=== PATIENT | female | born 1975 | race Caucasian/White ===

== ENCOUNTER 2018-10-03 18:28 | Emergency (ER) | payer BC, OTHER ==
[~2018-10-03] VITALS: Ht 165.1 cm; Wt 91.0 kg
[2018-10-03] MEDS ORDERED: ONDANSETRON HCL 4MG/2ML INJ IV STA (18:59)
[2018-10-03] MEDS ORDERED: KETOROLAC 30MG/ML VIAL IV STA (18:59)
[2018-10-03] MEDS ORDERED: SODIUM CHLORIDE 0.9% 1,000 ML IV ONE (18:59)
[2018-10-03] MEDS ORDERED: MORPHINE SULFATE 4 MG/ML CPJ (NOT FOR IM USE) IV STA (18:59)
[2018-10-03 19:12] LABS: BASOPHILS % 0.5 % (0.0-2.0); EOSINOPHILS % 1.8 % (0.0-5.0); HEMATOCRIT. 37.9 % (36.0-48.0); HEMOGLOBIN. 12.6 g/dL (12.0-16.0); LYMPHOCYTES % 43.5 % (20.0-50.0); MEAN CORPUSCULAR HEMOGLOBIN 29.1 pg (28.0-32.0); MEAN CORPUSCULAR VOLUME 87.4 fL (81.0-99.0); MEAN PLATELET VOLUME 8.2 fl (7.4-10.4); MONOCYTES % 7.2 % (2.0-8.0); PLATELET 335 x1000/uL (130-400); RED BLOOD CELL COUNT 4.34 mill/uL (4.2-5.4); RED CELL DISTRIBUTION WIDTH 14.5 % (11.6-14.6)
[2018-10-03 19:17] LABS: HCG SCREEN NEGATIVE
[2018-10-03 19:18] LABS: CHLORIDE 105 mEq/L (98-107)
[2018-10-03] MEDS ORDERED: MORPHINE SULFATE 4 MG/ML CPJ (NOT FOR IM USE) IV ONE ×2 (19:45→21:30)
[2018-10-03] MEDS ORDERED: KETAMINE HCL 50 MG/ML 10ML IV ONE (20:30)
[2018-10-03] MEDS ORDERED: MIDAZOLAM HCL 2 MG/2 ML VIAL IV ONE (20:30)
[2018-10-03] MEDS ORDERED: PROPOFOL 200MG/20ML VIAL IV ONE (20:30)
[2018-10-03] MEDS ORDERED: FENTANYL CITRATE/PF 50MCG/ML 2ML VIAL IV ONE (20:30)
[2018-10-03 22:53] VITALS: BP 110/52
== END 2018-10-03 23:10 | disposition short-term general hospital (02) ==
LOC: ER 18:28
DX: S82.855A Nondisplaced trimalleolar fracture of left lower leg, initial encounter for closed fracture (principal); W01.0XXA Fall on same level from slipping, tripping and stumbling without subsequent striking against object, initial encounter; Y93.89 Activity, other specified; Y92.018 Other place in single-family (private) house as the place of occurrence of the external cause
CPT/HCPCS: 27818; 36415; 73610; 80053; 84703; 85025; 96374; 96375; 96376; 99152; 99285; J1885; J2250; J2270; J2405; J2704; J3010; J3490; J7030